=== PATIENT | male | born 1965 | race Two or more races ===

== ENCOUNTER 2019-08-26 18:15 | Emergency (ER) | payer OTHER ==
[2019-08-26 18:26] VITALS: BMI 23.5
--- NOTE | 2019-08-26 18:26 | PDOC ---
Rapid Medical Evaluation Chief Complaint: Injury Time Seen by Provider: 08/26/19 18:22 Medical Evaluation: 08/26/19 18:22 CC: yesterday fell backwards hitting back of head , + brief loc, -nausea, no visual disturbances, no anticoagulation therapy, [place], given , motrin and no head ct, c/o headache to occipital region with mild dizziness Exam: aox 3, no visable injury Plan: head ct Discharge Disposition - Diagnosis Closed head injury - Referrals - Patient Instructions - Post Discharge Activity
--- NOTE | 2019-08-26 19:27 | PDOC ---
History of Present Illness - General Chief Complaint: Injury Stated Complaint: FALL/HEADACHE/WORK INJURY Time Seen by Provider: 08/26/19 18:22 History Source: Patient Exam Limitations: No Limitations - History of Present Illness Initial Comments: 08/26/19 19:23 Patient is a 54-year-old male with history of hypertension and [id number] diabetes who presents to the ED after a head injury that he sustained 2 days ago while at work. He states he was walking down steps while moving a copy machine when the person up top dropped the machine causing her to fall and the patient. He was pushed backward and fell, hitting the back of his head on the cement. He states he had LOC for several seconds. EMS was called and he was brought to [facility] where he was given Tylenol and Motrin and discharge. He states he did not have a CT scan. He states he has been having a persistent headache particularly to the back of his head. He denies any neck pain. He denies any visual changes. He states this morning he woke up and felt "weird" so he came to the ED for evaluation. Past History - Medical History Allergies/Adverse Reactions: Allergies Allergy/AdvReac Type Severity Reaction Status Date / Time No Known Allergies Allergy Verified 08/26/19 18:23 Home Medications: Ambulatory Orders Benazepril-Hctz 10-12.5 mg Tab 1 PO DAILY 08/26/19 Metformin HCl [Glucophage] 500 mg PO BID 08/26/19 - Psycho-Social/Smoking History Smoking History: Never smoked Information on smoking cessation initiated: No - Substance Abuse Hx (Audit-C & DAST Scrn) How often the patient has a drink containing alcohol: Never Score: In Men: 4 or > Positive; In Women: 3 or > Positive: 0 Screen Result (Pos requires Nsg. Audit-10AR): Negative In the last yr the pt used illegal drug/Rx for NonMed reason: No Score: Yes response is considered Positive: 0 Screen Result (Positive result requires Nsg. DAST-10): Negative Review of Systems - Review of Systems Comments:: 08/26/19 19:25 - Review of Systems Able to Perform ROS?: Yes Constitutional: No: Fever, Chills, Loss of Appetite, Night Sweats, Weakness HEENTM: No: Eye Pain, Vision changes, Ear Pain, Throat Pain, Throat Swelling, Mouth Pain, Difficulty Swallowing Respiratory: No: Cough, Shortness of Breath, Wheezing, Sputum Production Cardiac (ROS): No: Chest Pain, Chest Tightness, Palpitations, Irregular Heart Beat, Edema ABD/GI: No: Nausea, Vomiting, Abdominal Pain, Diarrhea : No Dysuria, No Hematuria, No Frequency, No Urgency, No Vaginal Discharge/Pain Musculoskeletal: No: Muscle Pain, Back Pain, Joint Pain, Muscle Weakness, Neck Pain Integumentary: No: Lesions, Rash Neurological: No: Headache, Numbness, Tingling, Weakness, Speech Difficulties; positive: Minor head injury *Physical Exam - Vital Signs Last Vital Signs Temp Pulse Resp BP Pulse Ox 98.2 F 55 L 17 167/64 98 08/26/19 18:21 08/26/19 18:21 08/26/19 18:21 08/26/19 18:21 08/26/19 18:21 - Physical Exam 08/26/19 19:25 - Physical Exam General Appearance: Nourished, Appropriately Dressed, No Distress HEENT: EOMI, Normal Voice, No Pharyngeal Erythema, No Muffled/Hoarse voice, No Tonsillar Exudate, No Tonsillar Erythema, No Nasal Congestion, No Rhinorrhea, Hearing Grossly Normal, TMs Normal, No TM Bulging, No TM Dullness, No TM Erythema, no hemotympanum or septal hematoma. No yanez sign or raccoon eyes appreciated. Neck: Supple, No Lymphadenopathy (R), No Lymphadenopathy (L), No Rigidity, No Decreased range of motion Respiratory/Chest: Lungs Clear, Normal Breath Sounds. No Respiratory Distress, No Accessory Muscle Use Cardiovascular: Regular Rhythm, Regular Rate, S1, S2 Gastrointestinal/Abdominal: Normal Bowel Sounds, Soft. Non-tender, No Guarding, No Rebound, No Rigidity Musculoskeletal: Normal Inspection. No Decreased Range of Motion Extremity: Normal Capillary Refill, Normal Inspection Integumentary: Normal Color, Dry. No Rash Neurologic: graduate intern II-XII NML intact, Fully Oriented, Alert, Normal Mood/Affect, Normal Response. Normal gait without ataxia. Strength 5/5 bilateral upper and lower extremities. Speaking in full and complete sentences. Sensation intact to light touch to the face, bilateral upper and lower extremities. No obvious hematoma or contusion to the left occiput where the patient states he hit his head. There is an area of tenderness to the left occiput. No break in the skin appreciated. Medical Decision Making - Medical Decision Making 08/26/19 19:26 Assessment: Patient is a 54-year-old male with a minor head injury that he sustained 2 days ago with LOC for several seconds. Plan: -CT head ordered -Will reassess 08/26/19 20:36 Pt is feeling ok and is pending CT scan read. He has been made aware that the CT is still pending and will make him aware as soon as it's read. 08/26/19 21:[address] head CT is negative for acute pathology. He has been made aware of this. He has been made aware that his symptoms are likely secondary to concussion versus minor head injury. He should get plenty of rest and drink plenty of fluids. He should follow-up with his primary doctor within 1 to 2 days for repeat evaluation. He understands and agrees with this treatment plan and he is stable for discharge. Discharge - Discharge Information Problems reviewed: Yes Clinical Impression/Diagnosis: Closed head injury Qualifiers: Encounter type: initial encounter Qualified Code(s): S09.90XA - Unspecified injury of head, initial encounter Condition: Stable Disposition: HOME - Follow up/Referral - Patient Discharge Instructions Patient Printed Discharge Instructions: DI for Closed Head Injury Additional Instructions: Get plenty of rest and drink plenty of fluids. Take Tylenol or ibuprofen for pain. Be sure to follow-up with your primary doctor within 1 to 2 days for repeat evaluation. - Post Discharge Activity
[2019-08-26 21:34] VITALS: BP 134/68; PULSE 54; TEMP 97.7
== END 2019-08-26 21:34 | disposition home or self-care (01) ==
LOC: JER 18:15
DX: S09.90XA Unspecified injury of head, initial encounter (principal); W01.198A Fall on same level from slipping, tripping and stumbling with subsequent striking against other object, initial encounter
CPT/HCPCS: 70450-TC; 99285-25